=== PATIENT | male | born 1990 | race Caucasian/White ===

== ENCOUNTER 2021-01-03 07:40 | Inpatient (IN) | payer OTHER ==
[~2021-01-03] VITALS: Ht 180.3 cm; Wt 90.7 kg
--- NOTE | ~2021-01-03 | CON ---
[address] [address] CONSULTATION Name: KRISTINA FUCHS Room: [address] M.R.#: [id number] Admission: 01/03/21 Attend Phys: Jessica Posadas MD Discharge: Date of : 89 Report #: [id number] THIS REPORT FOR: cc: FAM - No family physician/PCP FAM - No family physician/PCP Odell Wakefield MD ~ DOC #: [id number] YOVANY Diaz DATE OF CONSULTATION: 01/04/2021 PRIMARY CARE PHYSICIAN: The patient does not have a PCP. Please note at the time of this dictation, the patient was seen and physically examined by myself. HISTORY OF PRESENT ILLNESS: This is a 30-year-old male who presented to the emergency room after having worsening of abdominal pain, diarrhea and some nausea and vomiting. The patient began experiencing nausea and vomiting. He denied any bright red blood or any coffee-ground emesis, which started yesterday, the day of admission. Prior to that, he states the weekend before he felt just very fatigued and lied around. By the middle of the week, he started having diarrhea, worsening of abdominal cramping and he did notice some blood in his stools. The patient states that his bowels prior to all of this moved once or twice a day, soft and formed up to 3 times a day. Currently, he states he is only going about twice a day, which is diarrhea and he still has noticed a little bit of blood in his stool. He denies any urgency or waking him up at night at this time. The patient was diagnosed with ulcerative colitis 6 years ago [place]. He will have to call his mother to find out who the product safety professional was that he saw at that time in which he had a colonoscopy. He states he was placed on some medications at that time. He does not recall what they are. He only took them for a short time because he said he wanted to do only diet changes, so he has been doing diet only up until now. He did have some leftover prednisone, which he started to take, but was unable to keep it down, prompting him to come in to be seen. ALLERGIES: No known drug allergies. MEDICATIONS FROM HOME: None. PAST MEDICAL HISTORY: Diagnosed with UC in 2014 [facility]. He will have to contact his mother to get us that information so we can obtain records. PAST SURGICAL HISTORY: Negative. FAMILY HISTORY: [place] [address] CONSULTATION Name: KRISTINA FUCHS Room: [address] IN [facility]#: [id number] Admission: 01/03/21 Attend Phys: Jessica Posadas MD Discharge: Date of : 89 Report #: [id number] SOCIAL HISTORY: Denies any illegal drug use. He smokes cigars about every 2 weeks and denies any alcohol except on rare occasions, maybe once a year. REVIEW OF SYSTEMS: Twelve-point review of systems is essentially negative except what is mentioned in the HPI. PHYSICAL EXAMINATION: VITAL SIGNS: Temperature 36.7, pulse 66, respirations 18, blood pressure 114/48. HEART: Regular rate and rhythm. LUNGS: Clear. ABDOMEN: Soft, positive bowel sounds in all four quadrants with no masses or tenderness noted. LABORATORY DATA: Hemoglobin on admission was 14.9, is 12.8; white count was 14, is down to 7.8; platelets 364. GFR is 100. His LFTs are completely normal. CT scan showed scattered mildly enlarged lymph node mesenteric adenitis and mild mucosal colon wall thickening throughout. IMPRESSION: 1. Abdominal pain, improved. 2. Diarrhea. 3. Hematochezia, bright red blood. 4. Ulcerative colitis since 2014. 5. Family history: Mother, UC. PLAN: 1. Colonoscopy tomorrow with Dr. Wakefield. 2. We [place] able to contact his mother to let us know who it is that we need to obtain it from. 3. Labs, ESR, CRP, acute hepatitis panel, QuantiFERON Gold TB. 4. IV steroids. 5. Further recommendations to be made once the above has all been noted. Thank you for allowing us to participate in this patient's care. Please do not hesitate to call with any questions regarding this consult. MD GARETH Felix/[place] [address] CONSULTATION Name: FRANCETWYLA IBARRADANNISHARRON ALMARAZ Room: [address] IN .R.#: [id number] Admission: 01/03/21 Attend Phys: Jessica Posadas MD Discharge: Date of : 89 Report #: [id number] By: [id number] Wakefield, /leda
[2021-01-03 07:52] VITALS: BP 140/74
[2021-01-03] MEDS ORDERED: PREDNISONE 10 M10 MG PO (07:57)
[2021-01-03] MEDS ORDERED: PREDNISONE10 MG PO (07:58)
[2021-01-03] MEDS ORDERED: FLEXERIL PO (07:58)
[2021-01-03] MEDS ORDERED: HYDROCODON-ACE1 EAC7 PO (07:58)
[2021-01-03 08:20] LABS: HEMATOCRIT 44.3 % (42.0-52.0); HEMOGLOBIN 14.9 gm/dL (14.0-18.0); MCH 26.3 pg (26.0-34.0); MCHC 33.6 g/dL (28.0-37.0); MCV 78.3 fL (80.0-100.0); MPV 8.1 fl. (7.2-11.1); NUCLEATED RBCS 0 /100WBC; PLATELET COUNT* 392 thou/uL (150-400); RBC 5.65 mil/uL (4.50-6.00); RDW-CV 14.5 % (10.5-14.5)
[2021-01-03 08:30] LABS: CALCIUM 8.5 mg/dL (8.5-10.1); POTASSIUM 3.7 mmol/L (3.5-5.1)
[2021-01-03 08:34] LABS: ALBUMIN 3.9 g/dL (3.4-5.0); TOTAL BILIRUBIN 0.9 mg/dL (<0.1-1.0); TOTAL PROTEIN 8.1 g/dL (6.4-8.2)
[2021-01-03 08:38] LABS: URINE BLOOD TRACE (Negative); URINE CLARITY CLEAR; URINE COLOR YELLOW; URINE GLUCOSE-RANDOM NEGATIVE (Negative); URINE KETONES 2+ (Negative); URINE LEUKOCYTES-REFLEX NEGATIVE (Negative); URINE NITRITE-REFLEX NEGATIVE (Negative); URINE PROTEIN 1+ (Negative); URINE SPECIFIC GRAVITY >= 1.030 (1.005-1.030); URINE UROBILINOGEN 0.2 E.U./dl (0.2-1.0)
[2021-01-03 08:40] LABS: ICTOTEST (BILI CONFIRMATORY) Negative (Negative); URINE BILIRUBIN 1+ (Negative)
[2021-01-03 08:48] LABS: ABSOLUTE LYMPHOCYTES 0.8 thou/uL (0.8-5.3); ABSOLUTE MONOCYTES 0.3 thou/uL (0.0-1.2); ABSOLUTE NEUTROPHILS 12.9 thou/uL (1.6-8.1)
[2021-01-03 08:49] LABS: PLATELET ESTIMATE ADEQUATE
[2021-01-03 14:00] VITALS: BP 118/57
[2021-01-03 15:25] VITALS: BP 118/57
[2021-01-03 16:14] VITALS: BP 115/54
[2021-01-03 20:00] VITALS: BP 116/64
[2021-01-04 04:22] LABS: HEMATOCRIT 38.2 % (42.0-52.0); MCH 26.8 pg (26.0-34.0); MCHC 33.6 g/dL (28.0-37.0); MCV 79.7 fL (80.0-100.0); MPV 8.4 fl. (7.2-11.1); RBC 4.79 mil/uL (4.50-6.00); RDW-CV 14.3 % (10.5-14.5); WBC 7.8 thou/uL (4.0-11.0)
[2021-01-04 05:07] LABS: CALCIUM 8.2 mg/dL (8.5-10.1); CREATININE 0.9 mg/dL (0.6-1.3); HEMOGLOBIN 12.8 gm/dL (14.0-18.0); MAGNESIUM 1.6 mg/dL (1.8-2.4); POTASSIUM 3.9 mmol/L (3.5-5.1); TOTAL BILIRUBIN 0.2 mg/dL (<0.1-1.0); TOTAL PROTEIN 6.8 g/dL (6.4-8.2)
[2021-01-04 07:15] VITALS: BP 114/48
--- NOTE | 2021-01-04 11:29 | EKG ---
[place] [address] ELECTROCARDIOGRAM REPORT Name: KRISTINA FUCHS Room: [address] ADM IN .R.#: [id number] Admission: 01/03/21 Attend Phys: Jessica Posadas, Discharge: Date of : 89 Date of Service: 01/03/21 0815 Report #: [id number] THIS REPORT FOR: //name// [facility] ED Test Date: 2021-01-03 Test Time: 08:15:13 Pat Name: KRISTINA FUCHS Department: Room: [facility] Gender: M Job Cost Estimator: fabian : 1990 Requested By: Tyson Murillo Order Number: [id number] MD: Yury Quinn Measurements Intervals Pelzer Rate: 107 P: 68 MN: 132 QRS: 77 QRSD: 91 T: 6 QT: 326 QTc: 435 Interpretive Statements Sinus tachycardia Borderline T wave abnormalities Baseline wander in lead(s) V2 No previous ECG available for comparison Electronically Signed On 01-04-2021 11:28:51 CDT by Yury Quinn [email or web address] <ELECTRONICALLY SIGNED> By: Yury Quinn MD, [facility] 01/04/21 1128 4 4 Yury Quinn MD, [facility] /EPI
[2021-01-04 16:31] VITALS: BP 121/49
[2021-01-04 20:30] VITALS: BP 105/55
[2021-01-05 04:35] LABS: HEMATOCRIT 38.3 % (42.0-52.0); HEMOGLOBIN 12.7 gm/dL (14.0-18.0); MCH 26.1 pg (26.0-34.0); MCHC 33.1 g/dL (28.0-37.0); MCV 78.8 fL (80.0-100.0); MPV 8.5 fl. (7.2-11.1); RBC 4.87 mil/uL (4.50-6.00); RDW-CV 14.8 % (10.5-14.5); WBC 8.5 thou/uL (4.0-11.0)
[2021-01-05 04:43] LABS: ALBUMIN 3.1 g/dL (3.4-5.0); CALCIUM 8.1 mg/dL (8.5-10.1); POTASSIUM 3.9 mmol/L (3.5-5.1); TOTAL BILIRUBIN 0.3 mg/dL (<0.1-1.0); TOTAL PROTEIN 6.8 g/dL (6.4-8.2)
[2021-01-05 07:15] VITALS: BP 105/56
[2021-01-05] MEDS ORDERED: APRISO0.375 GM PO (09:49)
[2021-01-05 09:53] VITALS: BP 105/56
[2021-01-06 02:06] LABS: HEPATITIS B SURFACE AG Negative (Negative)
== END 2021-01-05 12:12 | disposition home or self-care (01) | DRG 386 ==
LOC: M.ERS 07:40 → M.TBA-ER 10:09 → M.ORTHSURG 10:09
PROVIDERS: Emergency Medicine Emergency Medical Services; Nurse Practitioner Adult Health; ADMIT Internal Medicine; ATTEND Internal Medicine
DX: K51.90 Ulcerative colitis, unspecified, without complications (principal); K92.1 Melena; F17.210 Nicotine dependence, cigarettes, uncomplicated; Z20.822 Contact with and (suspected) exposure to COVID-19